=== PATIENT | male | born 2000 | race Caucasian/White ===

== ENCOUNTER 2020-08-11 18:42 | Emergency (ER) | payer BC ==
[~2020-08-11] VITALS: Ht 177.8 cm; Wt 72.7 kg
[2020-08-11 19:06] VITALS: BP 116/66; TEMP 98.5
[2020-08-11 20:14] VITALS: PULSE 68
== END 2020-08-11 20:13 | disposition home or self-care (01) ==
LOC: COL.ER 18:42
DX: S61.012A Laceration without foreign body of left thumb without damage to nail, initial encounter (principal); W26.0XXA Contact with knife, initial encounter